=== PATIENT | female | born 1945 | race Caucasian/White ===

== ENCOUNTER 2025-02-18 06:28 | Day surgery (SDC) | payer MEDICARE, OTHER, SELFPAY ==
[2025-02-18 10:42] LABS: Glucose - Point of Care 68 mg/dl (70-99)
[2025-02-18 12:15] LABS: Glucose - Point of Care 119 mg/dl (70-99)
== END 2025-02-18 12:47 | disposition home or self-care (01) ==
LOC: GI 06:28
PROVIDERS: ATTENDING PHYSICIAN Internal Medicine Gastroenterology
DX: Z12.11 Encounter for screening for malignant neoplasm of colon (principal); D50.0 Iron deficiency anemia secondary to blood loss (chronic); K55.20 Angiodysplasia of colon without hemorrhage; D12.2 Benign neoplasm of ascending colon; D12.4 Benign neoplasm of descending colon; K22.70 Barrett's esophagus without dysplasia; R12 Heartburn; K44.9 Diaphragmatic hernia without obstruction or gangrene; K31.7 Polyp of stomach and duodenum; Z87.19 Personal history of other diseases of the digestive system; Z86.0100 Personal history of colon polyps, unspecified; Z80.0 Family history of malignant neoplasm of digestive organs
CPT/HCPCS: 45385; 43239; 88305; 82962